=== PATIENT | male | born 1975 | race Two or more races ===

== ENCOUNTER 2024-07-03 11:21 | Emergency (ER) | payer OTHER ==
[~2024-07-03] VITALS: Ht 175.3 cm; Wt 93.9 kg
[2024-07-03] MEDS: SULFAMETHOX W/TRIMETH(800/160MG) DS TAB PO ONE (11:52)
--- NOTE | 2024-07-03 12:03 | DVH ---
CLINICAL INDICATION: RIGHT FOOT WOUND TECHNIQUE: XY R FOOT 3 VIEW XRAY Comparison: None FINDINGS/IMPRESSION: : There is no evidence of acute fracture or dislocation. Soft tissues are unremarkable.
[2024-07-03 12:10] LABS: Chloride 107 mmol/L (98-107); Potassium 4.4 mmol/L (3.5-5.1); Sodium 142 mmol/L (136-145)
[2024-07-03 12:11] LABS: Anion Gap 7 (5-15); Calcium 9.6 mg/dL (8.7-10.4); Carbon Dioxide 28 mmol/L (20-31)
[2024-07-03 12:16] LABS: BUN/Creatinine Ratio 9.9 (10.0-20.0); Blood Urea Nitrogen 10 mg/dL (9-23); Glucose 97 mg/dL (74-106)
[2024-07-03 12:20] LABS: Basophils # (auto) 0 10 ^3/uL (0-0.2); Basophils % (auto) 0.4 % (0.0-2.0); Eosinophils # (auto) 0.1 10 ^3/uL (0-0.8); Eosinophils % (auto) 1.5 % (0.0-7.0); Hemoglobin 15.7 g/dL (13.5-17.5); Lymphocytes # (auto) 1.6 10 ^3/uL (0.4-5.4); Mean Corpuscular Hemoglobin 33.4 pg (28.0-32.0); Mean Corpuscular Hgb Conc. 34.1 g/dL (32.0-36.0); Mean Corpuscular Volume 97.9 fL (80.0-100.0); Monocytes # (auto) 0.6 10 ^3/uL (0-1.3); Monocytes % (auto) 10.7 % (0.0-12.0); Neutrophils # (auto) 3.5 10 ^3/uL (1.6-8.6); Neutrophils % (auto) 59.4 % (37.0-80.0); Nucleated Red Blood Cells % 0.2 %; Platelet Count (auto) 201 10^3/uL (140-450); Red Cell Distribution Width 13.2 % (11.8-14.3); White Blood Cell 5.8 10^3/uL (4.4-10.8)
[2024-07-03] MEDS ORDERED: BACDST PO (12:46)
[2024-07-03] MEDS ORDERED: AML5T PO (12:46)
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
[2024-07-03 13:15] VITALS: BP 158/106; PULSE 86; RESP 18; TEMP 97.7; O2SAT 98
--- NOTE | 2024-07-04 07:26 | ECG ---
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
== END 2024-07-03 13:27 | disposition home or self-care (01) ==
LOC: ER 11:27
DX: L03.115 Cellulitis of right lower limb (principal); I10 Essential (primary) hypertension
CPT/HCPCS: 36415; 73630; 80048; 84484; 85025; 93005